=== PATIENT | female | born 1995 | race African-American/Black ===

== ENCOUNTER 2016-08-05 18:27 | Emergency (ER) | payer BC ==
[~2016-08-05] VITALS: Ht 167.6 cm; Wt 99.7 kg
[~2016-08-05 18:27] MED LIST: ALBUAER2 INH; LEVOIUD INT UTER
[2016-08-05 18:34] VITALS: TEMP 37.2; Ht 167.6 cm; Wt 99.7 kg
[2016-08-05] MEDS ORDERED: WLL100 PO (18:55)
[2016-08-05] MEDS ORDERED: FLNIN/ NAE (18:55)
[2016-08-05] MEDS ORDERED: HYDR25SU20 PR (19:08)
--- NOTE | 2016-08-05 19:09 | EMERGENCY ROOM VISIT NOTE ---
History First contact with patient: 18:44 Chief Complaint: RECTAL BLEEDING Stated Complaint: RECTAL BLEEDING Nursing Triage Summary: PT C/O RECTAL BLEEDING STARTING YESTERDAY BRIGHT RED IN COLOR. DENIES HEMMHROID HISTORY. History of Present Illness The patient is a 21 year old female who presents to the Emergency Room with complaints of bright red blood per rectum with bowel movements since yesterday. The patient does admit that she has to strain sometimes to move her bowels and has larger bowel movements. The patient states she moves her bowels on a regular basis. The patient denies any abdominal pain, nausea or vomiting. The patient states she does not have pain when she sits it is just painful when she moves her bowels. The patient denies any urinary symptoms of frequency, urgency or dysuria. The patient denies any history of hemorrhoids. Review of Systems 10 system review was performed and was negative unless stated otherwise history of present illness. Past Medical/Surgical History Medical Problems: (1) Asthma, Unspecified (2) Fall in home (3) Idiopathic Scoliosis (4) No Known Active Medical Problems (5) Right ankle sprain Family History Diabetes mellitus Lung disease Social History Smoking Status: Former Smoker Alcohol Use: none Housing Status: lives with family Occupation Status: unemployed Current/Historical Medications Scheduled Bupropion HCl (Bupropion HCl), 100 MG PO DAILY Levonorgestrel (Iud) (Mirena), 20 MCG INT UTER UD Scheduled PRN Albuterol (Ventolin Hfa), 2 PUFFS INH Q4H PRN for Asthma Symptoms Fluticasone Propionate (Fluticasone Propionate), 2 SPRAYS DONNA DAILY PRN for Allergy Symptoms Allergies Coded Allergies: No Known Allergies (Unverified , 09/04/15) Physical Exam Vital Signs Date Time Temp Pulse Resp B/P Pulse Ox O2 Delivery O2 Flow Rate FiO2 08/05/16 18:34 37.2 62 18 141/93 100 Room Air Physical Exam GENERAL: 21-year-old female appears in no acute distress. MENTAL Status: Alert and oriented 3. MOUTH: Mucosa is moist NECK: Supple, no lymphadenopathy noted. No carotid bruits noted. LUNGS: Clear auscultation without wheezes rales or rhonchi. CARDIAC: Regular rate and rhythm without murmur. Pulses is full and equal throughout. BACK: No CVA tenderness noted. ABDOMEN: Positive bowel sounds all 4 quadrants. Soft, nontender to palpation without organomegaly or masses. RECTAL: No external masses noted. No palpable internal masses noted. Stool guaiac was positive. EXTREMITIES: No cyanosis or edema noted. Medical Decision & Procedures Procedure ANOSCOPY: The anoscope was lubricated with lubricating jelly. The anoscope was inserted into the rectum. The internal probe was removed. Anoscopy revealed 3 small fissures from the 1 to 5 o'clock position. Small amount of active bleeding. No internal hemorrhoids noted. Anoscope was removed. Patient tolerated procedure well. ED Course The patient was evaluated. Anoscopy was performed as above. The patient was informed that she has 3 small fissures. The patient was discharged home in stable condition. Medical Decision Differential diagnosis include internal hemorrhoid, thrombosed hemorrhoid, anal fissures Impression Primary Impression: Anal fissure Departure Information Dispostion Home / Self-Care Condition GOOD Prescriptions Hydrocortisone Acetate (Rectal (ANUSOL-HC) 25 Mg Sup 1 SUPP NM BID for 7 Days, #14 SUPP Prov: Tran Hairston PA-C 08/05/16 Referrals Bob Ayon D.O.[facility] (PCP) Forms HOME CARE DOCUMENTATION FORM, IMPORTANT VISIT INFORMATION, WORK / SCHOOL INSTRUCTIONS Patient Instructions [employer] Additional Instructions Follow high-fiber diet. Recommend taking MiraLAX daily until symptoms have resolved. Use the Anusol suppositories twice daily as directed. Your symptoms should slowly improve. If you have increased rectal bleeding recommend follow- up with your family physician for referral to a surgeon.
[2016-08-05 19:17] VITALS: BP 141/85; PULSE 56; O2SAT 100
[2016-08-05] MEDS ORDERED: MTR/600 PO (19:51)
[2016-08-05] MEDS ORDERED: PRED10TA PO (19:51)
[2016-08-05] MEDS ORDERED: RBX500 PO (19:51)
== END 2016-08-05 19:17 | disposition home or self-care (01) ==
LOC: C.EDB 18:28 → C.EDA 19:17
DX: K60.2 Anal fissure, unspecified (principal); Z87.891 Personal history of nicotine dependence

== ENCOUNTER → 2016-08-12 | Outpatient (CLI) | payer BC ==
[~2016-08-12] MED LIST changes: -ALBUAER2 INH; +FLNIN/ NAE; -LEVOIUD INT UTER; +MTR/600 PO; +ONDA4TAB10 SL; +PRED10TA PO; +RBX500 PO; +WLL100 PO
--- NOTE | 2016-08-12 11:30 | DIAGNOSTIC IMAGING REPORT ---
MRI LUMBAR SPINE WITHOUT IV CONTRAST CLINICAL HISTORY: Chronic low back pain with right lower extremity radiculopathy. COMPARISON STUDY: Radiographs of the lumbar spine dated 09/01/2015. TECHNIQUE: MRI of the lumbar spine is performed utilizing various T1 and T2-weighted sequences in the axial and sagittal planes. IV contrast was not administered for this examination. FINDINGS: Lumbar spine: Vertebral body height and alignment are maintained throughout the lumbar spine. There is mild straightening of the lumbar lordosis. Normal marrow signal intensity is preserved throughout the visualized bony structures. The transverse and spinous processes appear maintained. There is no evidence of spondylolysis. Tiny anterior osteophytes are seen at L4 and L5. Minimal chronic degenerative endplate change is seen at L5-S1. Intervertebral discs: There is degenerative disc desiccation and loss of height at L5-S1. The remaining discs are normal in height and signal intensity. Spinal cord: The visualized spinal cord is normal in morphology and signal intensity. The conus medullaris terminates at the L1-L2 interspace. The nerve roots of the cauda equina are normal in morphology. L1-L2: Unremarkable. L2-L3: Unremarkable. L3-L4: Unremarkable. L4-L5: Unremarkable. L5-S1: There is a small posterior disc herniation with annular fissure. There is no significant acquired compromise of the central canal at this level. The minimum AP diameter measures 10 mm. The disc herniation is eccentric to the right and likely abuts the transiting right-sided sacral nerve roots. Sacrum: Visualized sacrum is normal in morphology and signal intensity. Soft tissues: The paraspinous soft tissues are within normal limits. The retroperitoneal structures are normal as visualized but not well evaluated. IMPRESSION: 1. There is a small disc herniation eccentric to the right at L5-S1. This likely impinges on the transiting right-sided sacral nerve roots. 2. There is no significant acquired compromise of the central canal. 3. No significant degenerative change is identified at the remaining lumbar levels. Dictated: 08/12/2016 11:09 AM Transcribed: 08/12/2016 11:29 AM [facility] Electronically signed by: Cleveland Rizvi M.D. 08/12/2016 11:30 AM Dictated Date/Time: 08/12/2016 11:09 AM
== END | disposition home or self-care (01) ==
LOC: C.MRI 10:20
PROVIDERS: ATTEND Physical Medicine & Rehabilitation
DX: M51.26 Other intervertebral disc displacement, lumbar region (principal); M54.16 Radiculopathy, lumbar region

== ENCOUNTER → 2016-08-26 | Outpatient (CLI) | payer BC ==
--- NOTE | 2016-08-26 12:35 | DIAGNOSTIC IMAGING REPORT ---
CHEST 2 VIEWS ROUTINE CLINICAL HISTORY: Cough. Asthma. Blood-tinged sputum. COMPARISON STUDY: Chest radiograph and chest CT January 23, 2014. FINDINGS: Lung volumes are normal. There is no pneumothorax or pleural effusion. There is no evidence of pulmonary edema. Cardiac size is normal. Mediastinal contours are normal. Mild right lower lung airspace opacity is present. IMPRESSION: Mild right lower lung opacity which favors an infectious process such as bronchopneumonia or bronchiolitis. Radiographic follow-up is recommended to ensure resolution. Electronically signed by: Blanco Duncan M.D. 08/26/2016 12:34 PM Dictated Date/Time: 08/26/2016 12:32 PM
== END | disposition home or self-care (01) ==
LOC: C.RADBC 12:09
PROVIDERS: ATTEND Physician Assistant Medical
DX: J45.909 Unspecified asthma, uncomplicated (principal); R04.2 Hemoptysis; R05 Cough; R91.8 Other nonspecific abnormal finding of lung field

== ENCOUNTER 2016-08-28 00:11 | Emergency (ER) | payer BC ==
[~2016-08-28] VITALS: Ht 167.6 cm; Wt 95.7 kg
[~2016-08-28 00:11] MED LIST changes: -ONDA4TAB10 SL
[2016-08-28 00:17] VITALS: TEMP 37.5; Ht 167.6 cm; Wt 95.7 kg
[2016-08-28] MEDS ORDERED: ONDANSETRON 4MG OD TAB PO STA (00:44)
--- NOTE | 2016-08-28 00:45 | EMERGENCY ROOM VISIT NOTE ---
History Report prepared by Mary Louiblashae: Inderjit Szymanski Under the Supervision of: Dr. Devin Talbert D.O. First contact with patient: 00:39 Chief Complaint: VOMITING Stated Complaint: PNEMONIA,VOMITING,DIARRHEA,CHILLS,FEVER Nursing Triage Summary: pt reports that she was diagnosed with pneumonia yesterday and prescribed doxy. tonight at approx 2330 pt began to have vomiting and diarrhea. denies abd pain. History of Present Illness The patient is a 21 year old female who presents to the Emergency Room with complaints of persistent vomiting that started today. The patient had five episodes of vomiting today. She denies any new abdominal pain. The patient started doxycycline today, and she started vomiting approximately one hour after starting it. She was started on Doxycycline after being diagnosed with pneumonia by her PCP yesterday. She denies the possibility of but cannot recall her LNMP. Source of History: patient Onset: today Position: other (GI) Quality: other (vomiting) Timing: other (persistent) Associated Symptoms: No abdominal pain Review of Systems See HPI for pertinent positives and negatives. A total of ten systems were reviewed and were otherwise negative. Past Medical & Surgical Medical Problems: (1) Asthma, Unspecified (2) Fall in home (3) Idiopathic Scoliosis (4) No Known Active Medical Problems (5) Right ankle sprain Family History Diabetes mellitus Lung disease Social History Smoking Status: Current Every Day Smoker Alcohol Use: none Housing Status: lives with family Occupation Status: unemployed Current/Historical Medications Scheduled Bupropion HCl (Bupropion HCl), 100 MG PO DAILY Prednisone (Prednisone), 10 MG PO TAPER UD Scheduled PRN Fluticasone Propionate (Fluticasone Propionate), 2 SPRAYS DONNA DAILY PRN for Allergy Symptoms Ibuprofen (Ibuprofen), 600 MG PO TID PRN for Pain Methocarbamol (Methocarbamol), 500 MG PO TID PRN for Muscle Spasms Allergies Coded Allergies: No Known Allergies (Unverified , 09/04/15) Physical Exam Vital Signs Date Time Temp Pulse Resp B/P Pulse Ox O2 Delivery O2 Flow Rate FiO2 08/28/16 00:17 37.5 91 20 112/72 94 Room Air Physical Exam GENERAL: Awake, alert, well-appearing, in no distress HENT: Normocephalic, atraumatic. Oropharynx unremarkable. EYES: Normal conjunctiva. Sclera non-icteric. NECK: Supple. No nuchal rigidity. FROM. No JVD. RESPIRATORY: Clear to auscultation. CARDIAC: Regular rate, normal rhythm. Extremities warm and well perfused. Pulses equal. ABDOMEN: Soft, non-distended. No tenderness to palpation. No rebound or guarding. No masses. RECTAL: Deferred. MUSCULOSKELETAL: Chest examination reveals no tenderness. The back is symmetrical on inspection without obvious abnormality. There is no CVA tenderness to palpation. No joint edema. LOWER EXTREMITIES: Calves are equal size bilaterally and non-tender. No edema. No discoloration. NEURO: Normal sensorium. No sensory or motor deficits noted. SKIN: No rash or jaundice noted. Medical Decision & Procedures Medications Administered Medications (Trade) Dose Ordered Sig/Carlos Route Start Time Stop Time Status Last Admin Dose Admin Ondansetron HCl (Zofran Odt) 4 mg NOW STAT PO 08/28/16 00:44 08/28/16 00:45 DC 08/28/16 00:49 4 MG ED Course 0040: The patient was evaluated in room C2b. A complete history and physical exam was performed. 0044: Zofran Odt 4 mg PO. Medical Decision Differential diagnosis includes gastritis, medication reaction, viral syndrome. Resting in no distress was given Zofran the emergency department no evidence of vomiting. Patient will need to continue taking Zofran as she is on doxycycline for suspected pneumonia. Impression Primary Impression: Vomiting Additional Impression: Adverse reaction to drug Scribe Attestation The scribe's documentation has been prepared under my direction and personally reviewed by me in its entirety. I confirm that the note above accurately reflects all work, treatment, procedures, and medical decision making performed by me. Departure Information Dispostion Home / Self-Care Prescriptions Ondasetron Odt (ZOFRAN ODT) 4 Mg Tab 4 MG SL Q6H for Nausea, #6 TAB Prov: Devin Talbert, DO 08/28/16 Referrals No Doctor, Assigned (PCP) Patient Instructions ED Nausea Vomiting, My [facility] Problem Qualifiers Primary Impression: Vomiting Vomiting type: unspecified Vomiting Intractability: non-intractable Nausea presence: without nausea Qualified Codes: R11.11 - Vomiting without nausea Additional Impression: Adverse reaction to drug Encounter type: initial encounter Qualified Codes: T88.7XXA - Unspecified adverse effect of drug or medicament, initial encounter
[2016-08-28] MEDS ORDERED: ONDA4TAB10 SL (01:06)
[2016-08-28 01:22] VITALS: BP 133/84; PULSE 78; O2SAT 95
== END 2016-08-28 01:23 | disposition home or self-care (01) ==
LOC: C.EDB 00:13 → C.EDC 01:23
DX: R11.11 Vomiting without nausea (principal); J18.9 Pneumonia, unspecified organism; T36.4X5A Adverse effect of tetracyclines, initial encounter; X58.XXXA Exposure to other specified factors, initial encounter; J45.909 Unspecified asthma, uncomplicated; M41.20 Other idiopathic scoliosis, site unspecified; Z83.3 Family history of diabetes mellitus; Z83.6 Family history of other diseases of the respiratory system; F17.210 Nicotine dependence, cigarettes, uncomplicated; Z79.899 Other long term (current) drug therapy

== ENCOUNTER → 2017-02-28 | Outpatient (CLI) | payer BC ==
[~2017-02-28] MED LIST changes: +ONDA4TAB10 SL
[2017-03-03 12:50] LABS: HERPES SIMPLEX CULT SOURCE GENITAL-VULVAR LESIO; HERPES SIMPLEX VIRUS CULT NOT ISOLATED (NOT ISOLATED)
== END | disposition home or self-care (01) ==
LOC: C.LABSPEC 17:40
PROVIDERS: ATTEND Physician Assistant
DX: N90.89 Other specified noninflammatory disorders of vulva and perineum (principal)